=== PATIENT | female | born 1945 | race Caucasian/White ===

== ENCOUNTER 2019-07-19 15:18 | Inpatient (IN) ==
--- NOTE | 2019-07-19 16:02 | XRay Report ---
CLINICAL INFORMATION: Fall. Hip pain. TECHNIQUE: AP pelvis, crosstable lateral right hip COMPARISON: None. FINDINGS: Subcapital right hip fracture with slight valgus angulation and impaction Pelvis is negative. No fracture. No lytic lesion. Left hip is negative. There is degenerative disc disease in the lower lumbar spine IMPRESSION: Subcapital right hip fracture Interpreted and Authenticated by: Yovanny Turner 07/19/19
[2019-07-19] MEDS ORDERED: ONDANSETRON 4 MG/2 ML VIAL IV ONE (16:06)
--- NOTE | 2019-07-19 16:11 | Emergency Department Note ---
Fall HPI - General Chief Complaint: Fall Stated Complaint: hip pain Time Seen by Provider: 07/19/19 15:31 Source: patient Mode of arrival: ambulatory Limitations: no limitations - History of Present Illness HPI Narrative: 74-year-old female who accidentally fell onto her right hip after a neighbor's dog accidentally pushed her over-the dog backed into her she could not get out of the way in time. Pain is severe and she is not able to walk on it - Related Data Home Medications Medication Instructions Recorded Confirmed Vitamin C 1 tab PO QDAY 12/24/14 07/19/19 cholecalciferol (vitamin D3) 125 5,000 unit PO QDAY cap 12/24/14 07/19/19 mcg (5,000 unit) capsule garlic 1,000 mg PO QDAY cap 12/24/14 07/19/19 omega-3 fatty acids 1,000 mg 1,000 mg PO QDAY cap 12/24/14 07/19/19 capsule Atenolol [Tenormin] 25 mg PO Q48H 11/06/15 07/19/19 Sertraline [Zoloft] 50 mg PO DAILY 11/06/15 07/19/19 Levothyroxine [Synthroid] 50 mcg PO DAILY 04/14/16 07/19/19 Losartan [Cozaar] 100 mg PO DAILY 04/14/16 07/19/19 colestipol 1 gram tablet 3 g PO BID 01/22/17 07/19/19 lorazepam 1 mg tablet 1 mg PO HS tab 01/22/17 07/19/19 calcium carbonate 600 mg calcium 600 mg PO QDAY tab 03/01/18 07/19/19 (1,500 mg) tablet cinnamon 1 capsule PO QDAY 03/01/18 07/19/19 Budesonide [Entocort EC] 9 mg PO QDAY 07/19/19 07/19/19 Mesalamine [Asacol Hd] 1,600 mg PO BID 07/19/19 07/19/19 Vit A,C & E/Lutein/Minerals 1 tab PO QDAY 07/19/19 07/19/19 [Ocuvite] Vitamin E 400 unit PO QDAY 07/19/19 07/19/19 Allergies Allergy/AdvReac Type Severity Reaction Status Date / Time cefdinir AdvReac Unknown Unknown Verified 01/14/19 11:01 Review of Systems All systems ED: reviewed and negative except as stated. Fall PMH - Past Medical History Attestation: Yes: The following information was validated with the patient. [facility] Narrative: Family History (Last Reviewed 06/17/18 @ 11:03 by Josi Dhaliwal, TREVA) Father Malignant neoplasm of colon Mother Macular degeneration Medical History (Last Reviewed 06/17/18 @ 11:03 by Josi Dhaliwal RN) Cellulitis (Acute) Bite by nonvenomous insect of foot or toe, with infection (Acute) Nausea & vomiting (Acute) Cellulitis (Acute) Urinary retention (Acute) Snoring (Acute) Hypertension (Acute) Headache (Acute) Fatigue (Acute) Crohn disease (Acute) Colon polyps (Acute) Past Surgical History (Last Reviewed 06/17/18 @ 11:03 by Josi Dhaliwal RN) H/O tubal ligation (Acute) H/O: hysterectomy (Acute) S/P correction of deviated nasal septum (Acute) History of bladder surgery (Acute) S/P appendectomy (Acute) S/P ankle ligament repair (Acute) Medical history: Reports: other (crohn's disease) Surgical history ED: Reports: orthopedic, other (Ankle knee) Psychiatric history: Reports: no psych history - Social History smoking status: Former smoker Physical Exam No acute distress resting. Normocephalic atraumatic. Conjunctive are clear sclera white nonicteric. No nasal discharge or congestion. Oropharynx pink and moist. Neck is supple without lymphadenopathy or thyromegaly. Heart is regular rate and rhythm. 2 out of 6 early systolic murmur. Lungs are clear to auscultation bilaterally without wheezes rales rhonchi or respiratory distress. Abdomen soft nontender nondistended. Right hip is tender at the groin. No pedal edema. Alert oriented able to answer questions appropriately Limitations: no limitations Course Vital Signs Temperature 97.0 F 07/19/19 15:20 Pulse Rate 83 07/19/19 15:20 Respiratory Rate 20 07/19/19 15:20 Blood Pressure 139/74 07/19/19 15:20 Pulse Oximetry (%) 98 07/19/19 15:20 Temperature 97.0 F 07/19/19 15:20 Pulse Rate 60 07/19/19 17:16 Respiratory Rate 14 07/19/19 17:16 Blood Pressure 149/75 07/19/19 16:46 Pulse Oximetry (%) 98 07/19/19 17:16 Fall - Lab Data Lab results reviewed: Yes I reviewed the patient's lab results. Result diagrams: 07/19/19 16:23 07/19/19 16:23 Lab Results 07/19/19 07/19/19 Range/Units 16:23 16:23 WBC 10.5 (4.50-11.00) K/mcL RBC 4.77 (3.59-5.38) M/mcL Hgb 14.1 (11.2-15.7) g/dL Hct 44.1 (34.1-44.9) % MCV 92.5 (80.0-100.0) fL MCH 29.6 (26.0-34.0) pg MCHC 32.0 (31.0-36.0) g/dL RDW 13.1 (11.5-14.5) % Plt Count 251 (140-440) K/mcL MPV 10.1 (7.4-10.4) fL Gran % 71.8 (38.0-78.0) % Lymph % (Auto) 21.7 (15.5-49.0) % [place] % (Auto) 5.2 (1.0-12.0) % Eos % (Auto) 0.7 (0.0-7.0) % Baso % (Auto) 0.6 (0.0-2.0) % Gran # 7.53 (1.80-8.00) K/mcL Lymph # (Auto) 2.27 (1.50-4.80) K/mcL [place] # (Auto) 0.55 (0.10-0.90) K/mcL Eos # (Auto) 0.07 (0.00-0.70) K/mcL Baso # (Auto) 0.06 (0.00-0.30) K/mcL Sodium 137 (133-145) mmol/L Potassium 4.4 (3.3-5.1) mmol/L Chloride 99 (96-108) mmol/L Carbon Dioxide 24 (22-30) mmol/L Anion Gap 14.0 (8-16) BUN 11 (8-23) mg/dl Creatinine 0.7 (0.6-1.1) mg/dl GFR Calculation 85 Glucose 118 H (70-105) mg/dL Calcium 9.6 (8.6-10.4) mg/dl Total Bilirubin 0.6 (0.0-1.0) mg/dL AST 34 (0-37) U/l ALT 43 H (0-40) U/l Alkaline Phosphatase 98 (39-117) U/L Total Protein 7.7 (5.9-8.4) gm/dL Albumin 4.4 (3.2-5.2) gm/dL Globulin 3.3 (2.2-3.7) gm/dL Albumin/Globulin Ratio 1.3 (1.0-2.3) - Radiology Data Radiology results reviewed: Yes I reviewed the patient's radiology results. Right hip subcapital fracture impacted on x-ray Chest x-ray shows right upper lobe mass so CT scan is recommended. This is ordered - EKG Data EKG attestation: Yes I reviewed and interpreted this EKG., Yes There are no EKG findings of acute coronary syndrome Disposition Pt seen by [employer] ASSEMBLER/PA only: No Clinical Impression: Right femoral fracture Qualifiers: Encounter type: initial encounter Femur location: neck, unspecified portion Fracture type: closed Qualified Code(s): S72.001A - Fracture of unspecified part of neck of right femur, initial encounter for closed fracture Summary: X-ray shows subcapital fracture of the right hip. Discussed case with Dr. Min Fang, orthopedist regional ehs manager. He agreed to consult on the patient and plans to fix her hip tomorrow morning. Chest x-ray EKG and laboratory are ordered in anticipation of surgery. Dilaudid for pain, Cagle catheter, Zofran for nausea and IV fluids ordered. She is not on a blood thinner. Will discuss with hospitalist for admission as she has several comorbidities Chest x-ray shows the possibility of a right upper lobe mass so CT scan is ordered per radiology recommendation Urinalysis [id number] dipstick showed positive nitrites so microscopic urinalysis ordered to further sort this out I discussed the patient with Dr. Brandt, hospitalist. He agreed to accept the patient for admission to the hospital with consult to Dr. Fang for surgery tomorrow. I relayed these incidental findings noted above to Dr. Brandt-results are pending at the time of admission. Disposition: Xfer As Inpt ([facility]) Condition: Fair Referrals: Ivy Azar MD [Primary Care Provider] - Yovanny Fang MD [Physician] -
[2019-07-19] MEDS ORDERED: 0.9 % SODIUM CHLORIDE 1,000 ML IV SCH ×2 (16:15→20:28)
--- NOTE | 2019-07-19 16:40 | XRay Report ---
CLINICAL INFORMATION:Hip fracture. Preoperative chest x-ray TECHNIQUE: AP semiupright portable chest x-ray COMPARISON: Previous chest x-rays dated 09/05/2016, 05/10/2015, 03/04/2015 FINDINGS:Possible right upper lobe mass. Chest CT scan is recommended for further evaluation. Heart size is mildly enlarged considering AP position. No pulmonary edema or definite pulmonary congestion. No consolidation. No evidence for pneumonia. IMPRESSION: 1. Possible right upper lobe mass. Recommend chest CT 2. Mild cardiomegaly. No pulmonary edema. Interpreted and Authenticated by: Yovanny Turner 07/19/19
[2019-07-19] MEDS: HYDROmorphone 2 MG/ML VIAL IV PRN ×3 (16:50→21:49)
[2019-07-19 17:06] LABS: Basophils # (Auto) 0.06 K/mcL (0.00-0.30); Basophils % (Auto) 0.6 % (0.0-2.0); Eosinophils # (Auto) 0.07 K/mcL (0.00-0.70); Eosinophils % (Auto) 0.7 % (0.0-7.0); Granulocytes % (Auto) 71.8 % (38.0-78.0); Hematocrit 44.1 % (34.1-44.9); Hemoglobin 14.1 g/dL (11.2-15.7); Lymphocytes # (Auto) 2.27 K/mcL (1.50-4.80); Lymphocytes % (Auto) 21.7 % (15.5-49.0); Mean Cell Volume 92.5 fL (80.0-100.0); Mean Platelet Volume 10.1 fL (7.4-10.4); Monocytes # (Auto) 0.55 K/mcL (0.10-0.90); Monocytes % (Auto) 5.2 % (1.0-12.0); Platelet Count 251 K/mcL (140-440); RBC 4.77 M/mcL (3.59-5.38); Red Cell Distribution Width 13.1 % (11.5-14.5); WBC 10.5 K/mcL (4.50-11.00)
[2019-07-19 17:25] LABS: Chloride 99 mmol/L (96-108)
[2019-07-19 17:26] LABS: ALT/SGPT 43 U/l (0-40); AST/SGOT 34 U/l (0-37); Albumin 4.4 gm/dL (3.2-5.2); Albumin/Globulin Ratio 1.3 (1.0-2.3); Alkaline Phosphatase 98 U/L (39-117); Bilirubin,Total 0.6 mg/dL (0.0-1.0); Blood Urea Nitrogen 11 mg/dl (8-23); Calcium 9.6 mg/dl (8.6-10.4); Carbon Dioxide 24 mmol/L (22-30); Globulin 3.3 gm/dL (2.2-3.7); Glomerular Filtration Rate 85; Glucose 118 mg/dL (70-105)
[2019-07-19 17:50] LABS: Appearance,Urine CLEAR; Bacteria,Urine FEW /hpf (0); Bilirubin,Urine NEG (NEG); Color,Urine YELLOW; Culture Indicated,Urine YES; Glucose,Urine (UA) NEGATIVE (NEG); Ketones,Urine NEG (NEG); Leukocyte Esterase,Urine NEG /uL (NEG); Mucus,Urine FEW /hpf (0); Nitrate,Urine POS (NEG); Protein,Urine NEG (NEG); Specific Gravity,Urine 1.015 (1.000-1.035); Urine Blood NEG mg/dL (<0.03); Urine RBC < 1 /hpf (0-1); Urine Squamous Epithelial Cell < 1 /hpf (0-4); Urine WBC 1 /hpf (0-4); Urobilinogen,Urine NEG (NEG)
--- NOTE | 2019-07-19 18:12 | Internal Med History&Physical ---
Medical - H&P: [facility] Patient information: Note initiated : 07/19/19 at 6:12 pm Service Date, if different from initiated Date: [] Patient: Natali Zendejas a 74 y/o F admitted on for hip pain. Chief Complaint: [] Chief complaint: Fall/right hip injury History of present illness: Ms. Zendejas is a 74 year old F with known history of Crohn's disease on mesalamine presented baseline state of health. She was out walking when her neighbors dog bumped into her and got off balance landing on her right hip . She was then brought into the ER due to pain and difficulty weightbearing. Initial work-up was consistent with right hip fracture on imaging. Chest imaging revealed suspicious mass lesion and subsequently CT was ordered results of which are pending.. Orthopedics was consulted and hospitalist service was requested for admission to facilitate operative intervention likely in the next 24 hours. At the time evaluation patient is accompanied with her [place]. She denies active distress. She denies precipitating events including lightheadedness dizziness and denies losing consciousness. She endorses pain as 6 out of 10 to 8 out of 10 around the right hip made worse on movement. She denies recent hospitalization or history of CAD/CVA/renal issues. She further denies diabetes or heart failure history. She denies fever chills. Review of systems A 10 point review system was performed and is negative except was cussed above Medical - H&P: PMH Medical history: Cellulitis (Acute) Bite by nonvenomous insect of foot or toe, with infection (Acute) Nausea & vomiting (Acute) Cellulitis (Acute) H/O: hysterectomy (Acute) Urinary retention (Acute) Snoring (Acute) Hypertension (Acute) Headache (Acute) Fatigue (Acute) Crohn disease (Acute) Colon polyps (Acute) Surgical History H/O tubal ligation (Acute) S/P correction of deviated nasal septum (Acute) History of bladder surgery (Acute) S/P appendectomy (Acute) S/P ankle ligament repair (Acute) Family History Father Malignant neoplasm of colon Mother Macular degeneration Social History marital status: smoking status: Former smoker alcohol intake frequency: does not drink substance use type: does not use Medical - H&P: Meds Home Medications Medication Instructions Recorded Confirmed Type Vitamin C 1 tab PO QDAY 12/24/14 07/19/19 History cholecalciferol (vitamin D3) 125 5,000 unit PO QDAY cap 12/24/14 07/19/19 History mcg (5,000 unit) capsule garlic 1,000 mg PO QDAY cap 12/24/14 07/19/19 History omega-3 fatty acids 1,000 mg 1,000 mg PO QDAY cap 12/24/14 07/19/19 History capsule Atenolol [Tenormin] 25 mg PO Q48H 11/06/15 07/19/19 History Sertraline [Zoloft] 50 mg PO DAILY 11/06/15 07/19/19 History Levothyroxine [Synthroid] 50 mcg PO DAILY 04/14/16 07/19/19 History Losartan [Cozaar] 100 mg PO DAILY 04/14/16 07/19/19 History colestipol 1 gram tablet 3 g PO BID 01/22/17 07/19/19 History lorazepam 1 mg tablet 1 mg PO HS tab 01/22/17 07/19/19 History calcium carbonate 600 mg calcium 600 mg PO QDAY tab 03/01/18 07/19/19 History (1,500 mg) tablet cinnamon 1 capsule PO QDAY 03/01/18 07/19/19 History Budesonide [Entocort EC] 9 mg PO QDAY 07/19/19 07/19/19 History Mesalamine [Asacol Hd] 1,600 mg PO BID 07/19/19 07/19/19 History Vit A,C & E/Lutein/Minerals 1 tab PO QDAY 07/19/19 07/19/19 History [Ocuvite] Vitamin E 400 unit PO QDAY 07/19/19 07/19/19 History Aspirin [Aspirin EC] 81 mg PO BID #60 tablet. 07/20/19 Rx HYDROcodone/APAP 10/325MG [[place] 1 - 2 tab PO Q4H PRN #60 tab 07/20/19 Rx 10-325Mg] Allergies Allergy/AdvReac Type Severity Reaction Status Date / Time cefdinir AdvReac Mild Diarrhea Verified 07/20/19 07:07 latex AdvReac Verified 07/20/19 09:43 Medical - H&P: Exam - Constitutional Vitals: Temp Pulse Resp BP Pulse Ox 97.0 F 60 14 149/75 98 07/19/19 15:20 07/19/19 17:16 07/19/19 17:16 07/19/19 16:46 07/19/19 17:16 General appearance: no acute distress Exam: Head normocephalic Oral cavity dry Alert oriented Eye movement symmetrical No ear nose discharge Neck no lymphadenopathy JVD S1-S2 regular rhythm, ESM grade left sternal border Diminished breath sounds bases abdomen soft nontender nondistended Right lower extremity minimally shortened and pain on passive movement at right hip, no joint swelling erythema Skin no suspicious lesion Psych alert cooperative Neuro nonfocal Medical - H&P: Reslt - Labs CBC & Chem 7: 07/20/19 05:22 07/20/19 05:22 Labs: Short CBC 07/19/19 Range/Units 16:23 WBC 10.5 (4.50-11.00) K/mcL Hgb 14.1 (11.2-15.7) g/dL Hct 44.1 (34.1-44.9) % Plt Count 251 (140-440) K/mcL BMP 07/19/19 16:23 Sodium 137 Potassium 4.4 Chloride 99 Carbon Dioxide 24 BUN 11 Creatinine 0.7 Glucose 118 H Calcium 9.6 Liver Function 07/19/19 Range/Units 16:23 Total Bilirubin 0.6 (0.0-1.0) mg/dL AST 34 (0-37) U/l ALT 43 H (0-40) U/l Alkaline Phosphatase 98 (39-117) U/L Albumin 4.4 (3.2-5.2) gm/dL Urine 07/19/19 Range/Units 16:49 Urine Color Yellow Urine Appearance Clear Urine pH 6.0 (5.0-9.0) Ur Specific [place] 1.015 (1.000-1.035) Urine Protein Neg (NEG) mg/dL Urine Glucose (UA) Negative (NEG) mg/dL Medical - H&P: A/P (1) Right femoral fracture Current visit: Yes Status: Acute * Right hip fracture-admit first operative intervention. Will manage as per orthopedic conditions. Keep n.p.o. after midnight * Pain management on as needed opioids * Preoperative risk evaluation- Based on RCRI [place] heart association risk stratification patient would categorically fall under moderate risk morbidity/mortality due to surgery specific risk however patient has a good functional baseline and does not carry history of CVA/CAD/CHF/renal failure or insulin-dependent diabetes. Patient would be a great candidate for postoperative rehab. Risk may include intraoperative and immediate postoperative ACS/CVA, however there are no modifiable risk factors at this time. I recommend maintaining a map greater than 70 during intraoperative phase and use of capnometry and IS to minimize pulmonary compilations. Additionally surgery and anesthesia specific risks will be addressed by respective care providers during their preoperative evaluations. Patient and family expresses understanding of above risks going into surgery. * History of Crohn's disease continue mesalamine * Hypertension continue losartan/atenolol * Anxiety disorder continue sertraline/Lorazepam * Hypothyroidism on thyroxine * Full code * Prophylaxis will be on heparin Plan * Inpatient admission * Orthopedic consult * Pain management * Keep n.p.o. after midnight * Pre-existing medical condition management as per home medications
--- NOTE | 2019-07-19 18:15 | Cat Scan Report ---
CLINICAL INFORMATION: Hip fracture. Preoperative chest x-ray was suspicious for a right upper lobe mass COMPARISON: Chest x-ray dated 07/19/2019. Previous chest x-rays dated 09/05/2016, 05/10/2015 TECHNIQUE: Axial noncontrast enhanced images through the chest. Sagittally and coronally reformatted images. MIP reformatted images. FINDINGS: Lungs:There is centrilobular emphysema. Clinical correlation for smoking history recommended. There is no focal pulmonary parenchymal mass or infiltrate. The density on prior chest x-ray is considered artifactual. There is no interlobular septal thickening. There is no honeycombing or bronchiectasis. There are no pulmonary parenchymal nodules. Mediastinum, vascular:Negative. No pathologic lymphadenopathy. No detectable hilar adenopathy. Heart:No significant cardiomegaly. No pleural effusion Pleura:No pleural fluid or pleural based mass Axilla, supraclavicular regions, chest wall:No pathologic axillary adenopathy. No supraclavicular abnormality. Musculoskeletal:No thoracic compression fracture. Sternum and ribs are negative Upper Abdomen:No acute or focal abnormality. Left adrenal gland is prominent but without discrete nodule IMPRESSION: 1. Centrilobular emphysema 2. No pulmonary parenchymal nodule. Suspicious focal density on chest x-ray is considered artifactual The exam was performed using radiation dose optimization techniques including, but not limited to, automated exposure control, adjustment of the mA and/or kV according to patient size and use of iterative reconstruction technique. Interpreted and Authenticated by: Yovanny Turner 07/19/19
[2019-07-19] MEDS ORDERED: ACETAMINOPHEN 325 MG TABLET PO PRN (20:28)
[2019-07-19] MEDS ORDERED: ONDANSETRON 4 MG ODT TABLET SL PRN (20:28)
[2019-07-19] MEDS ORDERED: MELATONIN 3 MG TABLET PO PRN (20:28)
[2019-07-19] MEDS ORDERED: MAGNESIUM SULFATE 2 GM/50 ML BAG IV PRN (20:28)
[2019-07-19] MEDS ORDERED: POTASSIUM CHLORIDE 20 MEQ PACKET PO PRN (20:28)
[2019-07-19] MEDS ORDERED: POLYETHYLENE GLYCOL 3350 17 GM PACKET PO PRN (20:28)
[2019-07-19] MEDS ORDERED: BISACODYL 10 MG SUPP.RECT PR PRN (20:28)
[2019-07-19] MEDS ORDERED: ONDANSETRON 4 MG/2 ML VIAL IV PRN (20:28)
[2019-07-19] MEDS ORDERED: ACETAMINOPHEN 650 MG/65 ML BOTTLE IV PRN (20:28)
[2019-07-19] MEDS ORDERED: ATENOLOL 25 MG TABLET PO SCH (21:00)
[2019-07-19] MEDS ORDERED: SENNOSIDES/DOCUSATE SODIUM 1 TAB TABLET PO SCH (21:00)
[2019-07-19] MEDS ORDERED: LORazepam 1 MG TABLET PO SCH (21:00)
[2019-07-19] MEDS: HEPARIN 5,000 UNIT/ML VIAL SQ SCH (21:49)
[2019-07-19] MEDS: DOCUSATE SODIUM 100 MG CAPSULE PO SCH (21:49)
[2019-07-19] MEDS: COLESTIPOLL 1 GM TABLET PO SCH (21:49)
[2019-07-19] MEDS: MESALAMINE 800 MG PO SCH (21:50)
[2019-07-19] MEDS: 0.9 % SODIUM CHLORIDE 10 ML SYRINGE IV SCH (21:50)
[2019-07-20] MEDS: HYDROmorphone 2 MG/ML VIAL IV PRN (02:15)
[2019-07-20] MEDS: 0.9 % SODIUM CHLORIDE 10 ML SYRINGE IV SCH ×3 (05:04→20:57)
[2019-07-20 06:47] LABS: Hematocrit 41.8 % (34.1-44.9); Hemoglobin 13.1 g/dL (11.2-15.7); Mean Cell Volume 93.5 fL (80.0-100.0); Mean Corpuscular HGB Conc 31.3 g/dL (31.0-36.0); Mean Platelet Volume 9.9 fL (7.4-10.4); Platelet Count 219 K/mcL (140-440); RBC 4.47 M/mcL (3.59-5.38); Red Cell Distribution Width 13.2 % (11.5-14.5); WBC 7.4 K/mcL (4.50-11.00)
[2019-07-20 07:11] LABS: ALT/SGPT 33 U/l (0-40); AST/SGOT 26 U/l (0-37); Albumin 3.7 gm/dL (3.2-5.2); Albumin/Globulin Ratio 1.3 (1.0-2.3); Alkaline Phosphatase 81 U/L (39-117); Bilirubin,Direct 0.2 mg/dL (0.0-0.3); Bilirubin,Total 1.1 mg/dL (0.0-1.0); Blood Urea Nitrogen 9 mg/dl (8-23); Carbon Dioxide 25 mmol/L (22-30); Chloride 101 mmol/L (96-108); Globulin 2.9 gm/dL (2.2-3.7); Glomerular Filtration Rate 89; Glucose 110 mg/dL (70-105); Lactate Dehydrogenase 241 U/L (94-250); Phosphorous 3.5 mg/dL (2.7-4.5); Triglycerides 59 mg/dl (<150); Uric Acid 3.1 mg/dL (2.5-8.0)
[2019-07-20] MEDS ORDERED: LEVOTHYROXINE 50 MCG TABLET PO SCH (07:30)
[2019-07-20 07:44] LABS: Eosinophils % (Manual) 3 % (0-7); Lymphocytes % 23 % (15-49); Monocytes % (Manual) 3 % (1-12); Platelet Estimate NORMAL (NORMAL); RBC Morphology NORMAL (NORMAL); Segmented Neutrophils % 71 % (38-78)
[2019-07-20] MEDS: COLESTIPOLL 1 GM TABLET PO SCH ×2 (08:30→20:57)
[2019-07-20] MEDS: HEPARIN 5,000 UNIT/ML VIAL SQ SCH (08:30)
[2019-07-20] MEDS: DOCUSATE SODIUM 100 MG CAPSULE PO SCH ×2 (08:30→20:56)
[2019-07-20] MEDS: MESALAMINE 800 MG PO SCH ×2 (08:30→20:57)
[2019-07-20] MEDS ORDERED: MULTIVIT,THER IRON,CA,FA & MIN 1 TABLET PO SCH (09:00)
[2019-07-20] MEDS ORDERED: LOSARTAN 50 MG TABLET PO SCH (09:00)
[2019-07-20] MEDS ORDERED: SERTRALINE 50 MG TABLET PO SCH (09:00)
[2019-07-20] MEDS ORDERED: SCOPOLAMINE 1 PATCH PATCH TOPICAL PRN (09:00)
[2019-07-20] MEDS ORDERED: BUDESONIDE 3 MG CAP.XL.24H PO SCH (09:00)
[2019-07-20] MEDS ORDERED: IPRATROPIUM/ALBUTEROL 3 ML AMPUL.NEB NEB PRN ×2 (09:00→09:59)
[2019-07-20] MEDS ORDERED: ceFAZolin 2 GM in DEXTROSE 5% IN WATER 50 ML IV SCH (09:00)
[2019-07-20] MEDS ORDERED: ASCORBIC ACID 500 MG TABLET PO SCH (09:00)
[2019-07-20] MEDS ORDERED: PROPOFOL 200 MG/20 ML VIAL IV ONE (09:10)
[2019-07-20] MEDS ORDERED: ePHEDrine 50 MG/ML AMPUL IV ONE (09:10)
[2019-07-20] MEDS ORDERED: fentaNYL 250 MCG/5 ML VIAL IV ONE (09:10)
[2019-07-20] MEDS ORDERED: DEXAMETHASONE 10 MG/ML VIAL IV ONE (09:10)
[2019-07-20] MEDS ORDERED: SUGAMMADEX SODIUM 200 MG/2 ML VIAL IV ONE (09:10)
[2019-07-20] MEDS ORDERED: ONDANSETRON 4 MG/2 ML VIAL IV ONE (09:10)
[2019-07-20] MEDS ORDERED: TRANEXAMIC ACID 1,000 MG/10 ML VIAL IV ONE (09:10)
[2019-07-20] MEDS ORDERED: SUCCINYLCHOLINE 20 MG/ML ML IV ONE (09:10)
[2019-07-20] MEDS ORDERED: ROCURONIUM 10 MG/ML ML IV ONE (09:10)
[2019-07-20] MEDS ORDERED: MIDAZOLAM 2 MG/2 ML VIAL IV ONE (09:10)
[2019-07-20] MEDS ORDERED: PHENYLEPHRINE 10 MG/ML VIAL IV ONE (09:10)
[2019-07-20] MEDS ORDERED: LIDOCAINE HCL/PF 100 MG/5 ML SYRINGE IV ONE (09:10)
[2019-07-20] MEDS ORDERED: KETAMINE 100 MG/ML ML IV ONE (09:10)
--- NOTE | 2019-07-20 09:37 | History and Physical Report ---
DATE OF ADMISSION: 07/19/2019 HISTORY OF PRESENT ILLNESS: The patient is a pleasant 74-year-old female with a history of Crohn's disease, presenting to the hospital yesterday after falling on to the right hip. She was discovered to have a nondisplaced subcapital femoral neck fracture. Orthopedics was consulted and the hospitalist admitted the patient and the patient was found to be cleared for surgery. The patient denies any chest pain, headache, neck pain, other injuries, abdominal pain, numbness, tingling, or any other acute symptoms. REVIEW OF SYSTEMS: A 10-point system was reviewed and is negative except as documented above. PAST MEDICAL HISTORY: She has a past medical history of cellulitis, hysterectomy, urinary retention, hypertension, headache, and Crohn's disease. PAST SURGICAL HISTORY: She has a history of a tubal ligation, deviated nasal septum, bladder surgery, history of an appendectomy, and history of an ankle ligament repair. SOCIAL HISTORY: . Smoking status, former smoker. Alcohol, does not drink. HOME MEDICATIONS: Vitamin C, cholecalciferol, garlic, omega 3 fatty acids, atenolol, sertraline, levothyroxine, losartan, Colace, colestipol, lorazepam, calcium carbonate, budesonide, mesalamine, vitamins A, C, and E, and vitamin E. ALLERGIES: SHE HAS AN ALLERGY TO CEFDINIR, BUT SHE DOES NOT KNOW THE REACTION. PHYSICAL EXAMINATION: VITAL SIGNS: Pulse of 84, respiratory rate of 18, blood pressure of 127/72, and pulse ox is 94% on 2 liters. GENERAL: No acute distress. The patient is resting comfortably in bed and converses joyfully. HEENT: Head: Atraumatic, normocephalic. Ears: Normal external exam. No pain or drainage. Nose: Normal external exam. No pain or drainage. Mouth and throat: Mucous membranes are moist. Uvula is midline. NECK: Supple. No lymphadenopathy. No thyromegaly. No tenderness. CHEST: No tenderness to palpation and clear to auscultation bilaterally. No rales or rhonchi. CARDIOVASCULAR: Regular rate and rhythm. ABDOMEN: Soft, nondistended. EXTREMITIES: No tenderness to any extremities except for the right lower extremity where there is tenderness at the right hip. No bruising or abrasions. SKIN: Intact. No evidence of any cellulitis or lacerations or abrasions. PSYCHIATRIC: Alert, cooperative, oriented x3. NEUROVASCULAR: No deficits. IMAGING: X-ray of the right hip shows a subcapital minimally displaced right hip fracture of the neck of the femur. IMPRESSION: subcapital minimally displaced right hip fracture of the neck of the femur PLAN: We will plan on taking the patient to the operating room today with Dr. Fang. Plan will be for an open reduction and internal fixation of the right hip fracture with right hip hemiarthroplasty versus right total hip arthroplasty. The patient will be admitted after surgery for postoperative pain control and physical therapy, and discharged to follow up with [facility] in the next 2 weeks for postoperative management and staple removal. KT:in Job ID: [id number] Doc ID: [id number] Emery SCHILLING
[2019-07-20] MEDS ORDERED: METOPROLOL TARTRATE 5 MG/5 ML VIAL IV PRN (09:59)
[2019-07-20] MEDS ORDERED: diphenhydrAMINE 50 MG/ML VIAL IV PRN (09:59)
[2019-07-20] MEDS ORDERED: HYDROmorphone 2 MG/ML VIAL IV PRN ×2 (09:59→12:22)
[2019-07-20] MEDS ORDERED: MEPERIDINE 25 MG/ML SYRINGE IV PRN (09:59)
[2019-07-20] MEDS ORDERED: ONDANSETRON 4 MG/2 ML VIAL IV PRN ×3 (09:59→12:22)
[2019-07-20] MEDS ORDERED: ACETAMINOPHEN 1,000 MG/100 ML BOTTLE IV ONE (09:59)
[2019-07-20] MEDS ORDERED: NALOXONE HCL 0.4 MG/ML VIAL IV PRN (09:59)
[2019-07-20] MEDS ORDERED: ATROPINE SULFATE 0.4 MG/ML VIAL IV PRN (09:59)
[2019-07-20] MEDS ORDERED: PROMETHAZINE 25 MG/ML VIAL IV PRN (09:59)
[2019-07-20] MEDS ORDERED: ePHEDrine 50 MG/ML AMPUL IV PRN (09:59)
[2019-07-20] MEDS ORDERED: METHOCARBAMOL 1,000 MG/10 ML VIAL IV PRN (09:59)
[2019-07-20] MEDS ORDERED: FLUMAZENIL 0.1 MG/ML ML IV PRN (09:59)
[2019-07-20] MEDS ORDERED: LACTATED RINGERS 1,000 ML IV SCH ×2 (10:00→11:00)
--- NOTE | 2019-07-20 10:47 | Brief Operative Note ---
Date of procedure: 07/20/19 Pre-op diagnosis: right hip femoral neck fracture Post-op diagnosis: same Procedure: right total hip arthroplasty Grafts/Implants: Yes Anesthesia: GETA Findings: mild hip osteoarthritis Complications: none Surgeon: Yovanny Fang Revenue Integrity Analyst: Emery Talbot Estimated blood loss (cc): 250 Specimens Removed/Pathology: none sent Condition: stable Disposition: PACU
[2019-07-20] MEDS ORDERED: TRANEXAMIC ACID 1,000 MG/10 ML VIAL IV SCH (10:49)
[2019-07-20] MEDS ORDERED: FLEETS ADULT ENEMA PR PRN ×2 (10:49→12:22)
[2019-07-20] MEDS ORDERED: POLYETHYLENE GLYCOL 3350 17 GM PACKET PO PRN ×3 (10:49→12:22)
[2019-07-20] MEDS ORDERED: BISACODYL 10 MG SUPP.RECT PR PRN ×2 (10:49→12:22)
[2019-07-20] MEDS ORDERED: MAGNESIUM HYDROXIDE 30 ML ORAL.SUSP PO PRN ×2 (10:49→12:22)
[2019-07-20] MEDS ORDERED: ONDANSETRON 4 MG ODT TABLET SL PRN ×2 (10:49→12:22)
[2019-07-20] MEDS ORDERED: KETOROLAC 15 MG/ML VIAL IV PRN ×2 (10:49→12:22)
[2019-07-20] MEDS ORDERED: METHOCARBAMOL 750 MG TABLET PO PRN (10:49)
[2019-07-20] MEDS ORDERED: HYDROcodone/APAP 10/325MG TABLET PO PRN (10:49)
[2019-07-20] MEDS ORDERED: BENZOCAINE/MENTHOL 1 LOZENGE PO PRN ×2 (10:49→12:22)
[2019-07-20] MEDS ORDERED: GENTAMICIN SULFATE 800 MG/20 ML VIAL IR ONE (10:58)
--- NOTE | 2019-07-20 11:01 | Discharge Summary ---
Ortho Discharge - [facility] - Patient Instructions Diet: Regular Diet Activity: ambulate with assistive device, weight bearing as tolerated Total Hip Protocol: Follow activity instructions as provided by Physical Therapy. Dressing Care: May shower in 2 days - Follow Up Plan Follow Up Appointments: Ivy Azar MD [Primary Care Provider] - Yovanny Fang MD [Physician] - Disposition: Home, Self-Care Prognosis: Good Rehab Potential: Good Overall status at discharge: patient is progressing back to baseline - Orders For Discharge Prescriptions: Aspirin [Aspirin EC] 81 mg PO BID #60 tablet.dr Transmission Status: Pending to [facility] [id number] HYDROcodone/APAP 10/325MG [[place] 10-325Mg] 1 - 2 tab PO Q4H PRN #60 tab PRN Reason: Pain Prescription Printed Additional Discharge Orders: Physical Therapy at Discharge - [facility] Location: None Selected Toilet Riser Discharge Order Location: None Selected Walker Location: None Selected
[2019-07-20] MEDS: fentaNYL 100 MCG/2 ML VIAL IV PRN ×4 (11:46→11:56)
[2019-07-20] MEDS ORDERED: MAGNESIUM SULFATE 2 GM/50 ML BAG IV PRN (12:22)
[2019-07-20] MEDS ORDERED: ACETAMINOPHEN 650 MG/65 ML BOTTLE IV PRN (12:22)
[2019-07-20] MEDS ORDERED: 0.9 % SODIUM CHLORIDE 1,000 ML IV SCH (12:22)
[2019-07-20] MEDS ORDERED: POTASSIUM CHLORIDE 20 MEQ PACKET PO PRN (12:22)
[2019-07-20] MEDS ORDERED: ACETAMINOPHEN 325 MG TABLET PO PRN (12:22)
--- NOTE | 2019-07-20 12:28 | XRay Report ---
CLINICAL INFORMATION: Postsurgical follow-up TECHNIQUE: AP pelvis and crosstable lateral right hip COMPARISON: Preoperative evaluation dated FINDINGS: Status post right total hip arthroplasty. Anatomic alignment demonstrated. There are skin pernell overlying the right hip. IMPRESSION: Right total hip arthroplasty Interpreted and Authenticated by: Yovanny Turner 07/20/19
[2019-07-20] MEDS: LACTATED RINGERS 1,000 ML IV SCH ×2 (12:35→20:55)
[2019-07-20] MEDS ORDERED: 0.9 % SODIUM CHLORIDE 10 ML SYRINGE IV SCH ×2 (14:00)
--- NOTE | 2019-07-20 15:54 | Internal Med Progress Note ---
Medical - PN: Subj Patient information: Note initiated : 07/20/19 at 3:52 pm Service Date, if different from initiated Date: [] Patient: Natali Zendejas 74 y/o F admitted on 07/19/19 for hip pain. Chief Complaint: [] Interval history: Ms. Zendejas is a 74 year old F with known history of Crohn's disease on mesal amine presented baseline state of health. She was out walking when her neighbors dog bumped into her and got off balance landing on her right hip . She was then brought into the ER due to pain and difficulty weightbearing. Initial work-up was consistent with right hip fracture on imaging. Chest imaging revealed suspicious mass lesion and subsequently CT was ordered results of which are pending.. Orthopedics was consulted and hospitalist service was requested for admission to facilitate operative intervention likely in the next 24 hours. At the time evaluation patient is accompanied with her Augustine. She denies active distress. She denies precipitating events including lightheadedness dizziness and denies losing consciousness. She endorses pain as 6 out of 10 to 8 out of 10 around the right hip made worse on movement. She denies recent hospitalization or history of CAD/CVA/renal issues. She further denies diabetes or heart failure history. She denies fever chills. 07/20-patient doing well, postop day 1. Ongoing physical therapy. Tolerating diet. No significant postoperative pain. No overnight events or concerns per staff. - Constitutional Vitals: Vital Signs Temp Pulse Resp BP Pulse Ox 97.4 F 89 20 90/51 96 07/20/19 15:10 07/20/19 15:10 07/20/19 15:10 07/20/19 15:10 07/20/19 15:10 Period Temp Pulse Resp BP Sys/Morrell Pulse Ox Last 24 Hr 97.1 F-98.7 F 60-103 14-25 90-149/42-114 89-99 Intake and Output 07/20/19 07/20/19 07/20/19 05:59 13:59 21:59 Intake Total 0 2100 Output Total 75 650 Balance -75 1450 Intake & Output: Intake & Output 07/20/19 07/20/19 07/20/19 05:59 13:59 21:59 Intake Total 0 2100 Output Total 75 650 Balance -75 1450 Intake: IV 100 Oral 0 IV - Manual Only 1999 Output: Urine Catheter Amount 75 300 Estimated Blood Loss 350 Other: Urine Appearance Clear Uretheral (Cagle) Clear Urine Color Dark Yellow Light Katie Uretheral ([place]agle) Dark Yellow Urine Odor Strong Uretheral (Cagle) Normal Medical - PN: Obj Da - Labs CBC & Chem 7: 07/20/19 05:22 07/20/19 05:22 Labs: Abnormal Lab Results 07/20/19 07/19/19 07/19/19 05:22 16:49 16:23 Glucose 110 H 118 H Total Bilirubin 1.1 H GGT 57 H ALT 43 H Urine Nitrate Pos A Urine Bacteria Few A Meds: Medications Acetaminophen (Tylenol) 650 mg PO Q4-6HP PRN; Protocol PRN Reason: Per Pain Protocol/Fever > 101 Hydrocodone Bitart/Acetaminophen (Amma 10/325mg) 0 tab PO Q4HP PRN PRN Reason: PAIN LEVEL 3-6 Ascorbic Acid (Vitamin C) 500 mg PO DAILY [facility] Aspirin (Aspirin) 81 mg PO BID [facility] Atenolol (Tenormin) 25 mg PO Q48H [facility] Bisacodyl (Dulcolax) 10 mg MI Q2-3DAYS PRN PRN Reason: Constipation Budesonide (Entecort) 9 mg PO QDAY [facility] Cefazolin Sodium (Ancef) 2 gm IV Q8H [facility] Stop: 07/21/19 01:01 Colestipol HCl (Colestid) 3 gm PO BID [facility] Docusate Sodium (Colace) 100 mg PO BID [facility] Magnesium Sulfate (Magnesium Sulfate) 2 gm in 50 mls @ 50 mls/hr IV UD PRN PRN Reason: MG = or < 1.7 Acetaminophen (Ofirmev) 650 mg in 65 mls @ 130 mls/hr IV Q6HP PRN; Protocol PRN Reason: Per Pain Protocol/Fever > 101 Lactated Ringer's (Lactated Ringers) 1,000 mls @ 125 mls/hr IV .Q8H [facility] Last Admin: 07/20/19 12:35 Dose: 125 mls/hr Documented by: Iron Carb/Multivit/Probate Judge/Folic Acid (Multivitamin W/Minerals) 1 tab PO DAILY [facility] Ketorolac Tromethamine (Toradol) 15 mg IV Q6HP PRN PRN Reason: Pain Stop: 07/22/19 10:52 Levothyroxine Sodium (Synthroid) 50 mcg PO ACB [facility] Lorazepam (Ativan) 1 mg PO HS [facility] Losartan Potassium (Cozaar) 100 mg PO DAILY [facility] Magnesium Hydroxide (Milk Of Magnesia) 30 ml PO BIDP PRN PRN Reason: Constipation Melatonin (Melatonin 3mg Tablet) 3 mg PO HSP PRN PRN Reason: Insomnia Methocarbamol (Robaxin) 750 mg PO Q6HP PRN PRN Reason: Muscle Spasm Morphine Sulfate (Morphine) 0 mg IV Q1HP PRN PRN Reason: PAIN LEVEL > 6 Ondansetron HCl (Zofran Odt) 4 mg SL Q4-6HP PRN; Protocol PRN Reason: Nausea And Vomiting Ondansetron HCl (Zofran) 4 mg IV Q4-6HP PRN; Protocol PRN Reason: Nausea And Vomiting Mesalamine (Asacol) (800 Mg Tablet) 1 dose PO BID [facility] Polyethylene Glycol (Miralax) 17 gm PO DAILYP PRN PRN Reason: Constipation Potassium Chloride (Klor-Con) 40 meq PO DAILYP PRN PRN Reason: K+ < 3.5 Senna (Senokot) 1 tab PO HS [facility] Senna/Docusate Sodium (Senna Plus Tablet) 1 tab PO HS [facility] Sertraline HCl (Zoloft) 50 mg PO DAILY [facility] Sodium Biphosphate/Sodium Phosphate (Fleets Adult) 1 dose MI Q3-4DAYS PRN PRN Reason: Constipation Sodium Chloride (Saline Flush) 10 ml IV Q8 [facility] Last Admin: 07/20/19 14:47 Dose: Not Given Documented by: Throat Lozenges (Cepacol) 1 lozenge PO PRN PRN PRN Reason: Sore Throat Medical - PN: A/P - Time Spent With Patient Total time spent is greater than 50% in coordination of care (as documented) at patient's floor/unit and/or counseling patient: 25 - 35 minutes (1) Right femoral fracture Status: Acute Assessment and plan: * Right hip fracture-postop day 1. Managed per orthopedics. * Pain management stable on as needed opioids * History of Crohn's disease continue mesalamine * Hypertension continue home dose losartan/atenolol * Anxiety disorder continue sertraline/Lorazepam * Hypothyroidism on thyroxine * Full code * Prophylaxis will be on heparin Plan * Continue postoperative care as per orthopedics * Continue pain management * Aggressive PT OT/nutrition support * Pre-existing medical condition management as per home medications Current Visit: Yes Medical - PN: Qual - VTE Deep Vein Thrombosis/Pulmonary Embolism Present on Admission: No
[2019-07-20] MEDS: HYDROcodone/APAP 10/325MG TABLET PO PRN ×2 (15:59→17:41)
[2019-07-20] MEDS ORDERED: ceFAZolin 1 GM VIAL IV SCH (17:00)
[2019-07-20] MEDS: ceFAZolin 1 GM VIAL IV SCH (17:30)
[2019-07-20] MEDS: ASPIRIN 81 MG TAB.CHEW PO SCH (20:56)
[2019-07-20] MEDS: SENNOSIDES/DOCUSATE SODIUM 1 TAB TABLET PO SCH (20:57)
[2019-07-20] MEDS: SENNOSIDES 1 TABLET PO SCH (20:57)
[2019-07-20] MEDS ORDERED: DOCUSATE SODIUM 100 MG CAPSULE PO SCH ×2 (21:00)
[2019-07-20] MEDS ORDERED: SENNOSIDES 1 TABLET PO SCH (21:00)
[2019-07-20] MEDS ORDERED: MELATONIN 3 MG TABLET PO PRN (21:00)
[2019-07-20] MEDS ORDERED: ASPIRIN 81 MG TAB.CHEW PO SCH (21:00)
[2019-07-20] MEDS: METHOCARBAMOL 750 MG TABLET PO PRN (21:16)
[2019-07-20] MEDS: LORazepam 1 MG TABLET PO SCH (23:10)
[2019-07-21] MEDS: ceFAZolin 1 GM VIAL IV SCH (01:00)
[2019-07-21] MEDS: 0.9 % SODIUM CHLORIDE 10 ML SYRINGE IV SCH ×3 (04:22→22:13)
[2019-07-21] MEDS: LACTATED RINGERS 1,000 ML IV SCH ×3 (04:42→20:25)
[2019-07-21] MEDS: HYDROcodone/APAP 10/325MG TABLET PO PRN ×4 (04:46→20:23)
[2019-07-21 06:34] LABS: Hematocrit 34.2 % (34.1-44.9); Hemoglobin 10.5 g/dL (11.2-15.7); Mean Cell Volume 95.8 fL (80.0-100.0); Mean Corpuscular HGB Conc 30.7 g/dL (31.0-36.0); Platelet Count 177 K/mcL (140-440); RBC 3.57 M/mcL (3.59-5.38); Red Cell Distribution Width 13.4 % (11.5-14.5)
[2019-07-21 07:08] LABS: Chloride 103 mmol/L (96-108)
[2019-07-21] MEDS: LEVOTHYROXINE 50 MCG TABLET PO SCH (07:09)
[2019-07-21 07:11] LABS: ALT/SGPT 26 U/l (0-40); AST/SGOT 27 U/l (0-37); Albumin 3.1 gm/dL (3.2-5.2); Albumin/Globulin Ratio 1.2 (1.0-2.3); Alkaline Phosphatase 69 U/L (39-117); Bilirubin,Direct < 0.2 mg/dL (0.0-0.3); Bilirubin,Total 0.4 mg/dL (0.0-1.0); Blood Urea Nitrogen 10 mg/dl (8-23); Calcium 8.3 mg/dl (8.6-10.4); Carbon Dioxide 19 mmol/L (22-30); Globulin 2.6 gm/dL (2.2-3.7); Glomerular Filtration Rate 89; Glucose 133 mg/dL (70-105); Lactate Dehydrogenase 267 U/L (94-250); Phosphorous 2.6 mg/dL (2.7-4.5); Triglycerides 57 mg/dl (<150); Uric Acid 2.6 mg/dL (2.5-8.0)
[2019-07-21 07:19] LABS: Lymphocytes % 15 % (15-49); Monocytes % (Manual) 3 % (1-12); Platelet Estimate NORMAL (NORMAL); RBC Morphology NORMAL (NORMAL); Segmented Neutrophils % 82 % (38-78)
[2019-07-21] MEDS: COLESTIPOLL 1 GM TABLET PO SCH ×2 (08:14→20:24)
[2019-07-21] MEDS: DOCUSATE SODIUM 100 MG CAPSULE PO SCH ×2 (08:14→20:24)
[2019-07-21] MEDS: LOSARTAN 50 MG TABLET PO SCH (08:15)
[2019-07-21] MEDS: MESALAMINE 800 MG PO SCH ×2 (08:16→20:35)
[2019-07-21] MEDS: BUDESONIDE 3 MG CAP.XL.24H PO SCH (08:16)
[2019-07-21] MEDS: ASCORBIC ACID 500 MG TABLET PO SCH (08:18)
[2019-07-21] MEDS: SERTRALINE 50 MG TABLET PO SCH (08:18)
[2019-07-21] MEDS: ASPIRIN 81 MG TAB.CHEW PO SCH ×2 (08:19→20:23)
[2019-07-21] MEDS: MULTIVIT,THER IRON,CA,FA & MIN 1 TABLET PO SCH (08:19)
--- NOTE | 2019-07-21 08:25 | Operative Note ---
DATE OF OPERATION: 07/20/2019 PREOPERATIVE DIAGNOSES: Femoral neck fracture, right hip, with osteoarthritis. POSTOPERATIVE DIAGNOSES: Femoral neck fracture, right hip, with osteoarthritis. PROCEDURE: Right total hip arthroplasty for femoral neck fracture. SURGEON: Kendra Fang M.D. PHYSICIAN UNDERWRITER SURGEON: Emery Talbot PA-C. The PA's assistance was required for the safe and efficient completion of the entire case. The provider's expertise and technical skill were required throughout the case. The PA assisted with preoperative coordination, intraoperative retraction, wound closure, dressing and splint application, as well as postoperative documentation and care coordination. ANESTHESIA: Spinal with LMA assist. ESTIMATED BLOOD LOSS: 250 mL. COMPLICATIONS: None noted. SPECIMENS REMOVED: None. DRAINS: None. IMPLANTS: DePuy [place] Gription acetabular shell 52 mm diameter; DePuy [place] Hole Eliminator PS; DePuy [place] Altrx polyethylene acetabular liner, neutral 36 x 52; DePuy femoral stem Actis Duofix hip prosthesis, cementless, size 5, standard collar; DePuy Biolox Delta ceramic femoral head +1.5, 36 mm diameter. INDICATIONS: The patient had a fall and sustained a femoral neck fracture. We talked about different options. She has mild osteoarthritis on x-ray, so we talked about a consuelo-arthroplasty versus a total hip arthroplasty. After a long discussion about treatment options, the patient elected to proceed with a hip arthroplasty. The risks and benefits were discussed with the patient in detail including, but not limited to, the risks of anesthesia, problems with the heart or lungs related to anesthesia, infection, compromise or injury to the nerves and blood vessels, deep venous thrombosis, pulmonary embolism, pneumonia, continued pain after surgery, worsening pain or symptoms after surgery, swelling, loss of motion, instability, leg length discrepancy, and need for repeat surgery. DESCRIPTION OF PROCEDURE: The patient was seen in pre-anesthesia waiting room where all questions were answered and the correct side and site were identified and marked. The patient was then brought to the operating room and administered the anesthetic and given pre-operative antibiotics. A timeout was then called. The patient was placed in the lateral decubitus position with all prominences well-padded using the Bg frame and the extremity was prepped and draped in the usual sterile fashion. Anesthesia gave the patient 1 gram of tranexamic acid via an intravenous route. A standard posterior approach was made. We dissected through the skin and subcutaneous tissue to the deep fascia. The deep fascia was split in line with the incision and a Charnley retractor was placed. We exposed, tagged, and incised the short external rotators and piriformis tendon and retracted them posteriorly to help protect the sciatic nerve which was palpated throughout the case. We then performed a T-capsulotomy and tagged the capsule edges. Prior to dislocating the hip, we set a length and offset gauge from a Steinmann pin in the iliac wing to a johnathon on the greater trochanter. The hip was then dislocated and a femoral neck osteotomy was created about a centimeter above the lesser trochanter. I removed the head, as well as the remainder of the bone that had fractured from her femoral neck fracture. The head was removed and sized. We next turned our attention to the acetabulum. Retractors were placed for optimal visualization. A complete labral excision was performed. The capsule was preserved for later closure. We began reaming using anatomic landmarks with the DePuy [place] acetabular system. We medialized the cup and reamed up to provide good fill and coverage of the trial. When the trial was stable and appropriately positioned with approximately 20 degrees of anteversion and 45 degrees of abduction, we impacted the DePuy [place] cup and placed a cancellous screw in the posterior-superior quadrant. Osteophytes were removed from around the shell. We placed the trial liner and turned our attention to the femur. We placed retractors for visualization, internally rotated the femur, and established intramedullary access. We broached using the DePuy Tri-Lock stem to a stable platform medial, lateral, and rotationally with the appropriate version. We then performed a calcar reaming off the broach. Trials were then placed and optimized for leg length and stability. We used the leg length and offset guide to confirm our trials. Best stability, length, and offset characteristics were obtained with these sizes. We removed all trials and impacted the polyethylene acetabular liner in a standard fashion after a thorough irrigation. We then impacted the femoral stem to its broached location and placed the head. Final reduction was performed. Again, good stability, leg length, and offset characteristics were noted. We irrigated with three liters of antibiotic saline. We closed the capsule with #2 FiberWire. We closed the fascia with a combination of #2 Stratafix and 0 Vicryl. We closed the subcutaneous tissue and skin in layers out to Dermabond on the skin. A sterile pressure dressing and abduction wedge was applied. All needle and sponge counts were correct. The patient was transferred to the recovery room in stable condition. CLARIBEL:theodore Job ID: [id number] Doc ID: [id number] Kendra Fang MD
--- NOTE | 2019-07-21 13:24 | Orthopedic Progress Note ---
Subjective Patient information: Note initiated : 07/21/19 at 1:22 pm Service Date, if different from initiated Date: [] Patient: Natali Zendejas 74 y/o F admitted on 07/19/19 for hip pain. Chief Complaint: [] Interval history: Patient is POD 1 from a right total hip arthroplasty following a femoral neck fracture the day before. Patient is doing well and has been participating in PT well. She denies any CP, GO, nausea, vomiting, weakness, numbness/tingling, or any other acute symptoms. Objective Vital signs: Vital Signs Temp Pulse Resp BP BP Pulse Ox 07/21/19 07:14 98.3 F 18 100/55 96 07/21/19 04:00 98.0 F 78 18 108/62 92 07/20/19 23:41 97.1 F 67 18 102/60 97 07/20/19 18:48 97.3 F 92 H 18 96/56 94 07/20/19 16:15 87 07/20/19 16:00 97.6 F 91 H 18 90/56 92 07/20/19 15:10 97.4 F 89 20 90/51 96 07/20/19 14:15 77 18 103/60 95 07/20/19 13:45 87 18 97/58 95 Intake and Output 07/20/19 07/21/19 07/21/19 21:59 05:59 13:59 Intake Total 1999 1438 Output Total 750 400 Balance 1250 1038 Intake: IV 1999 1038 Sodium Chloride 0.9% 1,000 ml @ 1000 50 mls/hr IV .Q20H [facility] Rx#: [id number] Lactated Ringers 1,000 ml @ 125 1000 973 mls/hr IV .Q8H [facility] Rx#: [id number] Oral 400 Output: Urine Catheter Amount 750 400 Other: Urine Appearance Clear Cloudy Uretheral (Cagle) Clear Urine Color Dark Yellow Light Katie Uretheral ([place]) Dark Yellow Urine Odor Normal Strong Weight 165 lb 3.2 oz Intake & Output: Intake & Output 07/20/19 07/21/19 07/21/19 21:59 05:59 13:59 Intake Total 1999 1438 Output Total 750 400 Balance 1250 1038 Weight 165 lb 3.2 oz Intake: IV 1999 1038 Sodium Chloride 0.9% 1,000 ml @ 1000 50 mls/hr IV .Q20H [facility] Rx#: [id number] Lactated Ringers 1,000 ml @ 125 1000 973 mls/hr IV .Q8H [facility] Rx#: [id number] Oral 400 Output: Urine Catheter Amount 750 400 Other: Urine Appearance Clear Cloudy Uretheral ([place]agle) Clear Urine Color Dark Yellow Light Katie Uretheral ([place]) Dark Yellow Urine Odor Normal Strong Incision: Yes healing Dressing: Yes clean, Yes dry, Yes intact Weight bearing status: full Neurological exam IM: Yes neurovascular intact Extremities exam IM: No calf tenderness, Yes normal inspection, Yes Foot pink and warm, Yes neurovascular intact - Labs CBC & BMP: 07/21/19 05:03 07/21/19 05:03 Labs: 07/21/19 07/21/19 07/20/19 05:03 05:03 05:22 Hgb TNP 10.5 L 13.1 Hct TNP 34.2 41.8 07/19/19 16:23 Hgb 14.1 Hct 44.1 Assessment and Plan (1) History of total right hip arthroplasty POD 1 from right total hip arthroplasty Posterior hip dislocation precautions, sleep with wedge Plan for discharge tomorrow Continue PT aspirin for DVT prophylaxis 81mg bid x 4 weeks Status: Acute
--- NOTE | 2019-07-21 13:33 | Internal Med Progress Note ---
Medical - PN: Subj Patient information: Note initiated : 07/21/19 at 1:31 pm Service Date, if different from initiated Date: [] Patient: Natali Zendejas a 74 y/o F admitted on 07/19/19 for hip pain. Chief Complaint: [] Interval history: Ms. Zendejas is a 74 year old F with known history of Crohn's disease on mesal amine presented baseline state of health. She was out walking when her neighbors dog bumped into her and got off balance landing on her right hip . She was then brought into the ER due to pain and difficulty weightbearing. Initial work-up was consistent with right hip fracture on imaging. Chest imaging revealed suspicious mass lesion and subsequently CT was ordered results of which are pending.. Orthopedics was consulted and hospitalist service was requested for admission to facilitate operative intervention likely in the next 24 hours. At the time evaluation patient is accompanied with her Augustine. She denies active distress. She denies precipitating events including lightheadedness dizziness and denies losing consciousness. She endorses pain as 6 out of 10 to 8 out of 10 around the right hip made worse on movement. She denies recent hospitalization or history of CAD/CVA/renal issues. She further denies diabetes or heart failure history. She denies fever chills. 07/20-patient doing well, postop day 1. Ongoing physical therapy. Tolerating diet. No significant postoperative pain. No overnight events or concerns per staff. 07/21-postop day 1. Patient doing well. No overnight events. No concerns per staff. Stable labs and hemodynamics. Anticipate discharge in 24 hours. Continue aggressive PT OT/nutrition support. Continue home medications. - Constitutional Vitals: Vital Signs Temp Pulse Resp BP Pulse Ox 98.3 F 78 18 100/55 96 07/21/19 07:14 07/21/19 04:00 07/21/19 07:14 07/21/19 07:14 07/21/19 07:14 Period Temp Pulse Resp BP Sys/Morrell Pulse Ox Last 24 Hr 97.1 F-98.3 F 67-92 - 90-108/51-62 92-97 Intake and Output 07/20/19 07/21/19 07/21/19 21:59 05:59 13:59 Intake Total 1999 1438 Output Total 750 400 Balance 1250 1038 Weight 165 lb 3.2 oz Intake & Output: Intake & Output 07/20/19 07/21/19 07/21/19 21:59 05:59 13:59 Intake Total 1999 1438 Output Total 750 400 Balance 1250 1038 Weight 165 lb 3.2 oz Intake: IV 1999 1038 Sodium Chloride 0.9% 1,000 ml @ 1000 50 mls/hr IV .Q20H [facility] Rx#: [id number] Lactated Ringers 1,000 ml @ 125 1000 973 mls/hr IV .Q8H [facility] Rx#: [id number] Oral 400 Output: Urine Catheter Amount 750 400 Other: Urine Appearance Clear Cloudy Uretheral (Cagle) Clear Urine Color Dark Yellow Light Katie Uretheral ([place]) Dark Yellow Urine Odor Normal Strong General appearance: no acute distress Exam: Alert oriented nonlabored breathing Operative site no significant pain swelling No anxiety Nondistended abdomen Medical - PN: Obj Da - Labs CBC & Chem 7: 07/21/19 05:03 07/21/19 05:03 Labs: Abnormal Lab Results 07/21/19 07/21/19 07/20/19 05:03 05:03 05:22 RBC 3.57 L Hgb 10.5 L MCHC 30.7 L Seg Neutrophils % 82 H Carbon Dioxide 19 L Glucose 133 H 110 H Calcium 8.3 L Phosphorus 2.6 L Total Bilirubin 1.1 H GGT 48 H 57 H ALT Lactate Dehydrogenase 267 H Total Protein 5.7 L Albumin 3.1 L Urine Nitrate Urine Bacteria 07/19/19 07/19/19 16:49 16:23 RBC Hgb MCHC Seg Neutrophils % Carbon Dioxide Glucose 118 H Calcium Phosphorus Total Bilirubin GGT ALT 43 H Lactate Dehydrogenase Total Protein Albumin Urine Nitrate Pos A Urine Bacteria Few A Meds: Medications Acetaminophen (Tylenol) 650 mg PO Q4-6HP PRN; Protocol PRN Reason: Per Pain Protocol/Fever > 101 Hydrocodone Bitart/Acetaminophen ([place] 10/325mg) 0 tab PO Q4HP PRN PRN Reason: PAIN LEVEL 3-6 Last Admin: 07/21/19 09:45 Dose: 2 tab Documented by: Ascorbic Acid (Vitamin C) 500 mg PO DAILY [facility] Last Admin: 07/21/19 08:18 Dose: 500 mg Documented by: Aspirin (Aspirin) 81 mg PO BID [facility] Last Admin: 07/21/19 08:19 Dose: 81 mg Documented by: Atenolol (Tenormin) 25 mg PO Q48H [facility] Bisacodyl (Dulcolax) 10 mg SC Q2-3DAYS PRN PRN Reason: Constipation Budesonide (Entecort) 9 mg PO QDAY [facility] Last Admin: 07/21/19 08:16 Dose: Not Given Documented by: Colestipol HCl (Colestid) 3 gm PO BID [facility] Last Admin: 07/21/19 08:14 Dose: Not Given Documented by: Docusate Sodium (Colace) 100 mg PO BID [facility] Last Admin: 07/21/19 08:14 Dose: Not Given Documented by: Magnesium Sulfate (Magnesium Sulfate) 2 gm in 50 mls @ 50 mls/hr IV UD PRN PRN Reason: MG = or < 1.7 Last Admin: 07/21/19 09:46 Dose: 50 mls/hr Documented by: Acetaminophen (Ofirmev) 650 mg in 65 mls @ 130 mls/hr IV Q6HP PRN; Protocol PRN Reason: Per Pain Protocol/Fever > 101 Last Infusion: 07/20/19 23:45 Dose: Infused Documented by: Lactated Ringer's (Lactated Ringers) 1,000 mls @ 125 mls/hr IV .Q8H [facility] Last Admin: 07/21/19 04:42 Dose: 125 mls/hr Documented by: Iron Carb/Multivit/Datto/Folic Acid (Multivitamin W/Minerals) 1 tab PO DAILY [facility] Last Admin: 07/21/19 08:19 Dose: 1 tab Documented by: Ketorolac Tromethamine (Toradol) 15 mg IV Q6HP PRN PRN Reason: Pain Stop: 07/22/19 10:52 Levothyroxine Sodium (Synthroid) 50 mcg PO ACB [facility] Last Admin: 07/21/19 07:09 Dose: 50 mcg Documented by: Lorazepam (Ativan) 1 mg PO HS [facility] Last Admin: 07/20/19 23:10 Dose: 1 mg Documented by: Losartan Potassium (Cozaar) 100 mg PO DAILY [facility] Last Admin: 07/21/19 08:15 Dose: Not Given Documented by: Magnesium Hydroxide (Milk Of Magnesia) 30 ml PO BIDP PRN PRN Reason: Constipation Melatonin (Melatonin 3mg Tablet) 3 mg PO HSP PRN PRN Reason: Insomnia Methocarbamol (Robaxin) 750 mg PO Q6HP PRN PRN Reason: Muscle Spasm Last Admin: 07/20/19 21:16 Dose: 750 mg Documented by: Morphine Sulfate (Morphine) 0 mg IV Q1HP PRN PRN Reason: PAIN LEVEL > 6 Ondansetron HCl (Zofran Odt) 4 mg SL Q4-6HP PRN; Protocol PRN Reason: Nausea And Vomiting Ondansetron HCl (Zofran) 4 mg IV Q4-6HP PRN; Protocol PRN Reason: Nausea And Vomiting Mesalamine (Asacol) (800 Mg Tablet) 1 dose PO BID [facility] Last Admin: 07/21/19 08:16 Dose: Not Given Documented by: Polyethylene Glycol (Miralax) 17 gm PO DAILYP PRN PRN Reason: Constipation Potassium Chloride (Klor-Con) 40 meq PO DAILYP PRN PRN Reason: K+ < 3.5 Senna (Senokot) 1 tab PO [facility] Last Admin: 07/20/19 20:57 Dose: Not Given Documented by: Senna/Docusate Sodium (Senna Plus Tablet) 1 tab PO [facility] Last Admin: 07/20/19 20:57 Dose: Not Given Documented by: Sertraline HCl (Zoloft) 50 mg PO DAILY [facility] Last Admin: 07/21/19 08:18 Dose: 50 mg Documented by: Sodium Biphosphate/Sodium Phosphate (Fleets Adult) 1 dose SC Q3-4DAYS PRN PRN Reason: Constipation Sodium Chloride (Saline Flush) 10 ml IV Q8 [facility] Last Admin: 07/21/19 04:22 Dose: Not Given Documented by: Throat Lozenges (Cepacol) 1 lozenge PO PRN PRN PRN Reason: Sore Throat Medical - PN: A/P - Time Spent With Patient Total time spent is greater than 50% in coordination of care (as documented) at patient's floor/unit and/or counseling patient: 15 - 24 minutes (1) Right femoral fracture Status: Acute Assessment and plan: * Right hip fracture-postoperative care as per orthopedics. Possible discharge 24 hours. Continue PT OT. * Pain management stable on as needed opioids * History of Crohn's disease continue mesalamine * Hypertension continue home dose losartan/atenolol * Anxiety disorder continue sertraline/Lorazepam * Hypothyroidism on thyroxine * Full code * Prophylaxis on 81 twice daily aspirin per orthopedics Plan * Continue postoperative care as per orthopedics * Continue aggressive PT OT/nutrition support * Pre-existing medical condition management as per home medications Current Visit: Yes Medical - PN: Qual - VTE Deep Vein Thrombosis/Pulmonary Embolism Present on Admission: No
[2019-07-21] MEDS: SENNOSIDES 1 TABLET PO SCH (20:23)
[2019-07-21] MEDS: SENNOSIDES/DOCUSATE SODIUM 1 TAB TABLET PO SCH (20:23)
[2019-07-21] MEDS: LORazepam 1 MG TABLET PO SCH (20:24)
[2019-07-21] MEDS: METHOCARBAMOL 750 MG TABLET PO PRN (20:32)
[2019-07-21] MEDS ORDERED: ATENOLOL 25 MG TABLET PO SCH (21:00)
[2019-07-22] MEDS: HYDROcodone/APAP 10/325MG TABLET PO PRN ×2 (02:51→10:28)
[2019-07-22] MEDS: LACTATED RINGERS 1,000 ML IV SCH ×2 (04:06→11:17)
[2019-07-22] MEDS: 0.9 % SODIUM CHLORIDE 10 ML SYRINGE IV SCH (04:07)
--- NOTE | 2019-07-22 07:20 | Orthopedic Progress Note ---
Subjective Patient information: Note initiated : 07/22/19 at 7:18 am Service Date, if different from initiated Date: [] Patient: Natali Zendejas 74 y/o F admitted on 07/19/19 for hip pain. Chief Complaint: [] Interval history: doing well Objective Vital signs: Vital Signs Temp Pulse Resp BP BP Pulse Ox 07/22/19 02:50 97.5 F 81 16 103/55 94 07/21/19 23:24 97.5 F 83 16 96/56 95 07/21/19 20:00 97.9 F 99 H 18 111/62 94 07/21/19 16:00 98.3 F 93 H 18 94/56 90 Intake and Output 07/21/19 07/22/19 07/22/19 21:59 05:59 13:59 Intake Total 1420 600 Output Total 250 250 Balance 1170 350 Intake: Oral 1420 600 Output: Void Amount 250 250 Other: Urine Color Dark Yellow Urine Odor Strong Weight 170 lb Intake & Output: Intake & Output 07/21/19 07/22/19 07/22/19 21:59 05:59 13:59 Intake Total 1420 600 Output Total 250 250 Balance 1170 350 Weight 170 lb Intake: Oral 1420 600 Output: Void Amount 250 250 Other: Urine Color Dark Yellow Urine Odor Strong Incision: Yes healing Incision clean and dry: Yes Dressing: Yes clean, Yes dry, Yes intact Weight bearing status: full Neurological exam IM: Yes abnormal gait, Yes alert, Yes oriented X3, Yes motor sensory intact, Yes neurovascular intact Extremities exam IM: No calf tenderness, Yes Foot pink and warm, Yes neurovascular intact - Labs CBC & BMP: 07/21/19 05:03 07/21/19 05:03 Labs: 07/22/19 07/22/19 07/21/19 06:15 06:15 05:03 Hgb Pending Pending TNP Hct Pending Pending TNP 07/21/19 07/20/19 07/19/19 05:03 05:22 16:23 Hgb 10.5 L 13.1 14.1 Hct 34.2 41.8 44.1 Assessment and Plan (1) History of total right hip arthroplasty pod 2 s/p right heather for femoral neck fracture wbat posterior hip precautions pain control dvt prophylaxis d/c planning Status: Acute
[2019-07-22 09:29] LABS: Hematocrit 31.6 % (34.1-44.9); Hemoglobin 9.8 g/dL (11.2-15.7); Mean Platelet Volume 10.6 fL (7.4-10.4); Platelet Count 175 K/mcL (140-440); RBC 3.29 M/mcL (3.59-5.38); Red Cell Distribution Width 13.6 % (11.5-14.5); WBC 10.2 K/mcL (4.50-11.00)
[2019-07-22 09:46] LABS: ALT/SGPT 23 U/l (0-40); AST/SGOT 23 U/l (0-37); Albumin 3.1 gm/dL (3.2-5.2); Albumin/Globulin Ratio 1.2 (1.0-2.3); Alkaline Phosphatase 73 U/L (39-117); Bilirubin,Direct < 0.2 mg/dL (0.0-0.3); Bilirubin,Total 0.5 mg/dL (0.0-1.0); Blood Urea Nitrogen 9 mg/dl (8-23); Calcium 8.4 mg/dl (8.6-10.4); Chloride 100 mmol/L (96-108); Globulin 2.6 gm/dL (2.2-3.7); Glomerular Filtration Rate 89; Glucose 102 mg/dL (70-105); Lactate Dehydrogenase 189 U/L (94-250); Phosphorous 2.5 mg/dL (2.7-4.5); Triglycerides 76 mg/dl (<150); Uric Acid 2.5 mg/dL (2.5-8.0)
[2019-07-22 09:47] LABS: Carbon Dioxide 27 mmol/L (22-30)
[2019-07-22 10:15] LABS: Band Neutrophils % 1 % (0-10); Basophils % (Manual) 1 % (0-2); Eosinophils % (Manual) 3 % (0-7); Lymphocytes % 23 % (15-49); Monocytes % (Manual) 5 % (1-12); Platelet Estimate NORMAL (NORMAL); RBC Morphology NORMAL (NORMAL); Segmented Neutrophils % 67 % (38-78)
[2019-07-22] MEDS: COLESTIPOLL 1 GM TABLET PO SCH (10:22)
[2019-07-22] MEDS: DOCUSATE SODIUM 100 MG CAPSULE PO SCH (10:22)
[2019-07-22] MEDS: SERTRALINE 50 MG TABLET PO SCH (10:23)
[2019-07-22] MEDS: MULTIVIT,THER IRON,CA,FA & MIN 1 TABLET PO SCH (10:23)
[2019-07-22] MEDS: LEVOTHYROXINE 50 MCG TABLET PO SCH (10:23)
[2019-07-22] MEDS: ASCORBIC ACID 500 MG TABLET PO SCH (10:23)
[2019-07-22] MEDS: ASPIRIN 81 MG TAB.CHEW PO SCH (10:23)
[2019-07-22] MEDS: LOSARTAN 50 MG TABLET PO SCH (10:23)
[2019-07-22] MEDS: MESALAMINE 800 MG PO SCH (10:24)
[2019-07-22] MEDS: BUDESONIDE 3 MG CAP.XL.24H PO SCH (10:24)
--- NOTE | 2019-07-22 10:51 | Discharge Summary ---
Medical - DS: Prov Patient information: Note initiated : 07/22/19 at 10:48 am Service Date, if different from initiated Date: [] Patient: Natali Zendejas 74 y/o F admitted on 07/19/19 for hip pain. Chief Complaint: [] Date of admission: 07/19/19 20:26 Discharge date: 07/22/19 Primary care physician: Ivy Azar Consults: 07/19/19 Consult to Physician [CONS] Stat Comment: Consulting Provider: Blas Hsieh Reason For Exam: Physician to Consult Consult to Physician [CONS] Stat Comment: Consulting Provider: Yovanny Fang Reason For Exam: Physician to Consult Medical - DS: Meds - Discharge Medications Prescriptions: Aspirin [Aspirin EC] 81 mg PO BID #60 tablet.dr Transmission Status: Received by [id number] [id number] HYDROcodone/APAP 10/325MG [[place] 10-325Mg] 1 - 2 tab PO Q4H PRN #60 tab PRN Reason: Pain Prescription Printed Active and Home Medications: Home Medications Vitamin C 1 tab PO QDAY 12/24/14 [History Confirmed 07/19/19 Last Taken 04/13/16] cholecalciferol (vitamin D3) 125 mcg (5,000 unit) capsule 5,000 unit PO QDAY cap 12/24/14 [History Confirmed 07/19/19 Last Taken 07/19/19 11:00] garlic 1,000 mg PO QDAY cap 12/24/14 [History Confirmed 07/19/19 Last Taken 07/18/19 11:00] omega-3 fatty acids 1,000 mg capsule 1,000 mg PO QDAY cap 12/24/14 [History Confirmed 07/19/19 Last Taken 07/19/19 11:00] Atenolol [Tenormin] 25 mg PO Q48H 11/06/15 [History Confirmed 07/19/19 Last Taken 07/17/19 23:00] Sertraline [Zoloft] 50 mg PO DAILY 11/06/15 [History Confirmed 07/19/19 Last Taken 07/19/19 11:00] Levothyroxine [Synthroid] 50 mcg PO DAILY 04/14/16 [History Confirmed 07/19/19 Last Taken 07/19/19 11:00] Losartan [Cozaar] 100 mg PO DAILY 04/14/16 [History Confirmed 07/19/19 Last Taken 07/19/19 11:00] colestipol 1 gram tablet 3 g PO BID 01/22/17 [History Confirmed 07/19/19 Last Taken 07/19/19 19:00] lorazepam 1 mg tablet 1 mg PO HS tab 01/22/17 [History Confirmed 07/19/19 Last Taken 07/18/19 23:00] calcium carbonate 600 mg calcium (1,500 mg) tablet 600 mg PO QDAY tab 03/01/18 [History Confirmed 07/19/19 Last Taken 07/19/19 11:00] cinnamon 1 capsule PO QDAY 03/01/18 [History Confirmed 07/19/19 Last Taken 07/18/19 23:00] Budesonide [Entocort EC] 9 mg PO QDAY 07/19/19 [History Confirmed 07/19/19 Last Taken 07/19/19 11:00] Mesalamine [Asacol Hd] 1,600 mg PO BID 07/19/19 [History Confirmed 07/19/19 Last Taken 07/19/19 20:00] Vit A,C & E/Lutein/Minerals [Ocuvite] 1 tab PO QDAY 07/19/19 [History Confirmed 07/19/19 Last Taken 07/19/19 11:00] Vitamin E 400 unit PO QDAY 07/19/19 [History Confirmed 07/19/19 Last Taken Unknown] Aspirin [Aspirin EC] 81 mg PO BID #60 tablet. 07/20/19 [Rx Last Taken Unknown] HYDROcodone/APAP 10/325MG [[place] 10-325Mg] 1 - 2 tab PO Q4H PRN #60 tab 07/20/19 [Rx Last Taken Unknown] Medical - DS: Hosp Hospital Course: Discharge diagnosis * Right hip fracture-patient did well with aggressive management including operative intervention/postoperative rehab. Discharging with advised to continue outpatient PT OT/follow-up with orthopedics and continue weightbearing instruction as per orthopedics. Will continue DVT prophylaxis on 81 mg aspirin twice daily per orthopedics. * Pain management was well controlled on Tylenol/as needed opioids * History of Crohn's disease managed on home dose mesalamine * Hypertension managed on home dose losartan/atenolol * Anxiety disorder remained stable on sertraline/Lorazepam * Hypothyroidism managed on thyroxine Brief hospital course Ms. Aashish is a 74 year old F with known history of Crohn's disease on mesalamine presented baseline state of health. She was out walking when her neighbors dog bumped into her and got off balance landing on her right hip . S he was then brought into the ER due to pain and difficulty weightbearing. Initial work-up was consistent with right hip fracture on imaging. Chest imaging revealed suspicious mass lesion and subsequently CT was ordered results of which are pending.. Orthopedics was consulted and hospitalist service was requested for admission to facilitate operative intervention likely in the next 24 hours. At the time evaluation patient is accompanied with her [place]. She denies active distress. She denies precipitating events including lightheadedness dizziness and denies losing consciousness. She endorses pain as 6 out of 10 to 8 out of 10 around the right hip made worse on movement. She denies recent hospitalization or history of CAD/CVA/renal issues. She further denies diabetes or heart failure history. She denies fever chills. 07/20-patient doing well, postop day 1. Ongoing physical therapy. Tolerating diet. No significant postoperative pain. No overnight events or concerns per staff. 07/21-postop day 1. Patient doing well. No overnight events. No concerns per staff. Stable labs and hemodynamics. Anticipate discharge in 24 hours. Continue aggressive PT OT/nutrition support. Continue home medications. 07/22-patient discharging as per advice from orthopedics to continue postoperative care/follow-up with orthopedics. We will continue DVT prophylaxis on 81 mg twice daily aspirin per orthopedics. Recommend follow-up with primary care physician in 5 to 7 days. Discharge diagnosis: , - Time Spent with Patient Total time spent providing and/or coordinating discharge services: Medical - DS: Exam - Constitutional Vitals: Vital Signs Temp Pulse Resp BP BP Pulse Ox 07/22/19 08:00 98.4 F 94 H 16 118/66 94 07/22/19 02:50 97.5 F 81 16 103/55 94 07/21/19 23:24 97.5 F 83 16 96/56 95 07/21/19 20:00 97.9 F 99 H 18 111/62 94 07/21/19 16:00 98.3 F 93 H 18 94/56 90 Intake and Output 07/21/19 07/22/19 07/22/19 21:59 05:59 13:59 Intake Total 1420 600 Output Total 250 250 200 Balance 1170 350 -200 Intake: Oral 1420 600 Output: Void Amount 250 250 200 Other: Urine Color Dark Yellow Urine Odor Strong Weight 170 lb Medical - DS: Data Labs on day of discharge: Labs from last 24 hours 07/22/19 07/22/19 07/22/19 06:15 06:15 06:15 WBC 10.2 RBC 3.29 L Hgb TNP 9.8 L Hct TNP 31.6 L MCV 96.0 MCH 29.8 MCHC 31.0 RDW 13.6 Plt Count 175 MPV 10.6 H Total Counted 100 Seg Neutrophils % 67 Band Neutrophils % 1 Lymphocytes % 23 Monocytes % (Manual) 5 Eosinophils % (Manual) 3 Basophils % (Manual) 1 Platelet Estimate Normal RBC Morphology Normal Sodium 135 Potassium 4.2 Chloride 100 Carbon Dioxide 27 Anion Gap 8.0 BUN 9 Creatinine 0.6 GFR Calculation 89 Glucose 102 Uric Acid 2.5 Calcium 8.4 L Phosphorus 2.5 L Magnesium 2.0 Total Bilirubin 0.5 Direct Bilirubin < 0.2 GGT 47 H AST 23 ALT 23 Alkaline Phosphatase 73 Lactate Dehydrogenase 189 Total Protein 5.7 L Albumin 3.1 L Globulin 2.6 Albumin/Globulin Ratio 1.2 Triglycerides 76 Medical - DS: A/P - Patient/Caregiver Discharge Instructions Activity: increase activity as tolerated Diet: Regular Diet Additional Instructions: Follow-up PCP in 5 days F/u orthopedics as scheduled by orthopedics along with post op care. Post op DVT prophylaxis per orthopedics-81 twice daily aspirin Please schedule pulmonary function test as outpatient in 3 weeks Continue aggressive bowel regimen to prevent constipation Continue fall precautions Return to ER if worsening fever chills shortness of breath, diarrhea, bleeding Continue diet and activity as advised Discussed importance of medication adherence Please review medication list with patient prior to discharge Please schedule follow-up with PCP/Providers prior to discharge and provide printouts Prescriptions: Aspirin [Aspirin EC] 81 mg PO BID #60 tablet. Transmission Status: Received by [id number] [id number] HYDROcodone/APAP 10/325MG [[place] 10-325Mg] 1 - 2 tab PO Q4H PRN #60 tab PRN Reason: Pain Prescription Printed Other Amb Orders: Physical Therapy at Discharge - [facility] Location: None Selected Toilet Riser Discharge Order Location: None Selected Walker Location: None Selected - Problem Maintenance (1) Right femoral fracture Status: Acute Qualifiers: Encounter type: initial encounter Femur location: neck, unspecified portion Fracture type: closed Qualified Code(s): S72.001A - Fracture of unspecified part of neck of right femur, initial encounter for closed fracture - Follow up Plan Follow up with: Ivy Azar MD [Primary Care Provider] - Yovanny Fang MD [Physician] - Disposition: Home, Self-Care Prognosis: Good Rehab Potential: Fair I certify that the patient requires SNF services: No Overall status at discharge: patient is progressing back to baseline Medical - DS: Qual - VTE Deep Vein Thrombosis/Pulmonary Embolism Present on Admission: No
== END 2019-07-22 13:05 | disposition home or self-care (01) | DRG 470 ==
LOC: ED 15:18 → MEDSUR 20:26
PROVIDERS: ADMIT Internal Medicine; ATTEND Internal Medicine